=== PATIENT | male | born 2005 ===

== ENCOUNTER → 2025-06-19 19:03 | Outpatient (CLI) | payer BC, OTHER, SELFPAY ==
--- NOTE | 2025-06-19 19:10 | DI.MRI.S_ITS ---
PROCEDURE: MR ANKLE LT WO CON INDICATIONS: left ankle injury TECHNIQUE: Noncontrast sagittal T1 spin echo and T2 fast spin echo with fat saturation, axial proton density fast spin echo and T2 fast spin echo with fat saturation, coronal T1 spin echo and T2 fast spin echo with fat saturation through the ankle/hindfoot. COMPARISON: [facility], CR, XR ANKLE 3+ VIEWS LEFT, 06/18/2025, 14:08. FINDINGS: Image quality: Excellent. Severe diffuse subcutaneous fat stranding, consistent with soft tissue injury. Bones and joints: No displaced fracture. Mild ill-defined STIR signal elevation within the mid/anterior talus, the navicular, and anterior calcaneus, consistent with contusion. No hindfoot coalitions. No osteochondral injuries of the talar dome. No pathologic joint effusions. Medial structures: The posterior tibialis, flexor digitorum longus, and flexor hallucis longus tendons are intact. Small amount of fluid surrounds the tibialis posterior, flexor digitorum longus, and flexor hallucis longus muscles. The posterior tibial neurovascular bundle appears normal within the tarsal tunnel, without extrinsic mass effect. The deep layer (anterior and posterior tibiotalar ligaments) and superficial layer (tibionavicular, tibiospring, and tibiocalcaneal ligaments) of the deltoid ligament appear normal. The spring ligament components (superomedial calcaneonavicular, medioplantar oblique calcaneonavicular, and inferoplantar longitudinal ligaments) are intact. Lateral structures: Heterogeneous mixed signal intensity foci within the lateral subcutaneous fat adjacent to the distal fibula, measuring 30 mm anteroposterior by 12 mm transverse by 80 mm craniocaudal, consistent with hematoma, given the history of recent injury. Full-thickness tearing of the anterior talofibular ligament. The calcaneofibular ligament is markedly attenuated, indicating high-grade tearing. Posterior talofibular ligament is intact . More superiorly, the anterior and posterior tibiofibular ligaments appear intact, as is the intermalleolar ligament. The tibiofibular syndesmosis is normal in width at 2 mm or less. The peroneus longus and brevis tendons demonstrate normal location with a small amount of surrounding fluid. Adjacent bony peroneal tubercle and retrotrochlear prominence are normal in size. The sinus tarsi demonstrates normal fatty signal, without edema, fibrosis, or cyst formation. Visualized sinus tarsi components (cervical ligament, interosseous talocalcaneal ligament, roots of the inferior extensor retinaculum) appear normal. The calcaneonavicular and calcaneocuboid components of the bifurcate ligament appear intact. The dorsal calcaneocuboid ligament appears intact. Anterior structures: The tibialis anterior, extensor hallucis longus, and extensor digitorum longus tendons appear intact. The dorsal talonavicular ligament appears intact. Posterior and plantar structures: Achilles tendon is intact. Medial and lateral bands of the plantar fascia are of normal thickness. No abductor digiti quinti muscle atrophy to suggest Adams neuropathy. IMPRESSION: 1. Mid and hindfoot contusions without displaced fracture. 2. Tears of the anterior talofibular and calcaneal fibular ligaments. 3. Diffuse subcutaneous soft tissue injury with lateral subcutaneous hematomas. 4. Medial and lateral flexor tenosynovitis. Dictated by: Britt Lopez M.D. on 06/20/2025 at 10:23 Approved by: Britt Lopez M.D. on 06/20/2025 at 10:31
== END ==
PROVIDERS: PCP Family Medicine
DX: S90.32XA Contusion of left foot, initial encounter (principal); S93.492A Sprain of other ligament of left ankle, initial encounter; S93.412A Sprain of calcaneofibular ligament of left ankle, initial encounter; S90.02XA Contusion of left ankle, initial encounter; M65.872 Other synovitis and tenosynovitis, left ankle and foot; X58.XXXA Exposure to other specified factors, initial encounter
CPT/HCPCS: 73721